=== PATIENT | male | born 1965 | race Caucasian/White ===

== ENCOUNTER 2020-01-23 14:34 | Emergency (ER) | payer BC, OTHER ==
[~2020-01-23] VITALS: Ht 170.2 cm; Wt 124.7 kg
[2020-01-23] MEDS ORDERED: TECFIDERA240 MG PO (15:16)
[2020-01-23] MEDS ORDERED: FINASTERIDE5 MG PO (15:16)
[2020-01-23] MEDS ORDERED: AMITRIPTYLINE H10 M1 PO (15:16)
[2020-01-23] MEDS ORDERED: VITAMIN E1000 UNI2 PO (15:17)
[2020-01-23] MEDS ORDERED: VITAMIN B-121000 MC2 SUBLING (15:17)
[2020-01-23] MEDS ORDERED: VITAMIN D250 MC1 PO (15:18)
[2020-01-23 15:31] LABS: ABSOLUTE NEUTROPHILS 4.9 thou/uL (1.4-8.2); BASOPHILS 0.3 % (0.0-2.0); EOSINOPHILS 2.6 % (0.0-3.0); HEMATOCRIT 40.2 % (42.0-52.0); HEMOGLOBIN 13.4 gm/dL (14.0-18.0); LYMPHOCYTES 9.5 % (24.0-44.0); MCH 31.5 pg (26.0-34.0); MCHC 33.3 g/dL (28.0-37.0); MCV 94.6 fL (80.0-100.0); MONOCYTES 7.7 % (1.0-8.0); PLATELET COUNT 225 thou/uL (150-400); POLYS 79.9 % (36.0-66.0); RBC 4.25 mil/uL (4.50-6.00); RDW 13.8 % (10.5-14.5); WBC 6.1 thou/uL (4.0-11.0)
[2020-01-23 15:38] LABS: CALCIUM 8.6 mg/dL (8.5-10.1); CREATININE 1.1 mg/dL (0.7-1.3); POTASSIUM 4.3 mmol/L (3.5-5.1)
[2020-01-23] MEDS ORDERED: NORCO 5-325 TA1 EAC2 PO (17:51)
[2020-01-23 19:03] VITALS: BP 123/67
== END 2020-01-23 19:03 | disposition home or self-care (01) ==
LOC: ER 14:34
PROVIDERS: Emergency Medicine
DX: S42.291A Other displaced fracture of upper end of right humerus, initial encounter for closed fracture (principal); Z79.899 Other long term (current) drug therapy; Z88.0 Allergy status to penicillin; W01.0XXA Fall on same level from slipping, tripping and stumbling without subsequent striking against object, initial encounter; Y93.89 Activity, other specified; Y92.89 Other specified places as the place of occurrence of the external cause; Y99.0 Civilian activity done for income or pay